=== PATIENT | male | born 1970 | race Caucasian/White ===

== ENCOUNTER 2017-01-21 22:31 | Emergency (ER) | payer BC ==
--- NOTE | 2017-01-21 23:31 | EDM.PDOC ---
ED HPI GI/ABDOMINAL - General Chief Complaint: Chest Pain Stated Complaint: SOB CHEST AND BACK PAINS Time Seen by Provider: 01/21/17 23:16 Source of Information: Reports: Patient, Family (), RN notes reviewed History Limitations: Reports: No limitations - History of Present Illness INITIAL COMMENTS - FREE TEXT/NARRATIVE: The patient states that he developed sudden-onset central chest pain that radiated through to his mid-back around 21:20 tonight while he was relaxing, watching TV. The pain has been waxing and waning since. He feels somewhat better if he is standing, somewhat worse if he is supine. He reports dyspnea, slight nausea, slight clamminess, and anxiety. He states that he has had 4 or 5 similar episodes over the past month. They always occur while the patient is resting. They typically last about 2 minutes , but tonight's episode has lasted much longer. The patient reports that he had Doll's, MAC/tuna salad, and deviled eggs for dinner around 17:00. The patient states that he has a history of GERD, for which he takes over-the- counter Prilosec, but no other medical problems. He acknowledges that he does not have a doctor, and does not recall that he has ever had a general physical exam. - Related Data Allergies/ADRs: Allergies Allergy/AdvReac Type Severity Reaction Status Date / Time No Known Allergies Allergy Verified 03/13/15 12:25 Home Meds: Home Meds Omeprazole Magnesium [Prilosec Otc] 20 mg PO DAILY 01/21/17 [History] Ondansetron [Zofran ODT] 4 mg PO Q8H PRN #10 tab.dis 01/22/17 [Rx] Past Medical History Gastrointestinal History: Reports: GERD Social & Family History - Tobacco Use Smoking Status *Q: Current Every Day Smoker Years of Tobacco use: 20 Packs/Tins Daily: 0.5 - Alcohol Use Alcohol Use History: No - Recreational Drug Use Recreational Drug Use: No - Living Situation & Occupation Living situation: Reports: , with spouse, with family (Son) Occupation: employed ([employer]) ED ROS GENERAL - Review of Systems Review Of Systems: See Below Constitutional: Reports: no symptoms HEENT: Reports: No symptoms Respiratory: Reports: No Symptoms Cardiovascular: Reports: No symptoms Endocrine: Reports: no symptoms GI/Abdominal: Reports: No symptoms : Reports: no symptoms Musculoskeletal: Reports: no symptoms Skin: Reports: no symptoms Neurological: Reports: No Symptoms Psychiatric: Reports: No symptoms Hematologic/Lymphatic: Reports: no symptoms Immunologic: Reports: no symptoms ED EXAM, GI/ABD - Physical Exam Exam: See Below Exam Limited By: No limitations General Appearance: alert, WD/WN, anxious, mild distress (Appears uncomfortable) Eyes: bilateral: normal appearance, EOMI Ears: normal external exam, hearing grossly normal Nose: normal inspection, no blood Throat/Mouth: Normal inspection, Normal lips, Normal voice, No airway compromise Head: atraumatic, normocephalic Neck: normal inspection, full range of motion Respiratory/Chest: no respiratory distress, lungs clear, normal breath sounds, no accessory muscle use, chest non-tender Cardiovascular: normal peripheral pulses, regular rate, rhythm, no edema, no gallop, no JVD, no murmur, no rub GI/Abdominal: normal bowel sounds, soft, no organomegaly, no distention, no abnormal bruit, no mass, tenderness (Reproducible, to the right upper quadrant and epigastric region. Essentially nontender elsewhere.), Crowe's sign Back Exam: normal inspection, full range of motion, other (The patient indicates that the pain radiates through to just under his right scapula. No tenderness to this area). No: CVA tenderness (L), CVA tenderness (R) Extremities: normal inspection, normal range of motion, non-tender, normal capillary refill, no pedal edema Neurological: alert, oriented, normal cognition, no motor/sensory deficits Psychiatric: normal affect, anxious Skin Exam: Warm, Dry, Intact, Normal color, No rash Lymphatic: no adenopathy EKG INTERPRETATION EKG Date: 01/21/17 Time: 22:59 Rhythm: NSR Rate (beats/min): 81 [place]: normal P-wave: present QRS: normal ST-T: normal QT: normal Comparison: NA - no prior EKG Course - Vital Signs Last Recorded V/S: Last Vital Signs Temp 36.9 C 01/21/17 23:41 Pulse 87 01/22/17 02:27 Resp 16 01/22/17 02:27 BP 122/81 01/22/17 02:27 Pulse Ox 99 01/22/17 02:27 - Orders/Labs/Meds Labs: Laboratory Tests 01/21/17 01/21/17 01/21/17 Range/Units 23:13 23:13 23:13 WBC (4.23-9.07) K/mm3 RBC (4.63-6.08) M/mm3 Hgb (13.7-17.5) gm/L Hct (40.1-51.0) % MCV (79.0-92.2) fl MCH (25.7-32.2) pg MCHC (32.2-35.5) g/dl RDW Std Deviation (35.1-43.9) fL Plt Count (163-337) K/mm3 MPV (9.4-12.3) fl Neut % (Auto) (34.0-67.9) % Lymph % (Auto) (21.8-53.1) % [place] % (Auto) (5.3-12.2) % Eos % (Auto) (0.8-7.0) Baso % (Auto) (0.1-1.2) % Neut # (1.78-5.38) K/mm3 Lymph # (1.32-3.57) K/mm3 [place] # (0.30-0.82) K/mm3 Eos # (0.04-0.54) K/mm3 Baso # (0.01-0.08) K/mm3 PT 9.5 (8.0-13.0) SECONDS INR 0.88 APTT 24 (22-36) SECONDS Sodium (136-145) mEq/L Potassium (3.5-5.1) mEq/L Chloride (98-107) mEq/L Carbon Dioxide (21-32) mEq/L Anion Gap (5-15) BUN (7-18) mg/dL Creatinine (0.7-1.3) mg/dL Est Cr Clr Drug Dosing mL/min Estimated GFR (MDRD) (>60) mL/min BUN/Creatinine Ratio (14-18) Glucose (74-106) mg/dL Calcium (8.5-10.1) mg/dL Total Bilirubin (0.2-1.0) mg/dL AST (15-37) U/L ALT (16-63) U/L Alkaline Phosphatase (46-116) U/L Troponin I < 0.017 (0.00-0.056) ng/mL Total Protein (6.4-8.2) g/dl Albumin (3.4-5.0) g/dl Globulin gm/dL Albumin/Globulin Ratio (1-2) Lipase (73-393) U/L Urine Color (Yellow) Urine Appearance (Clear) Urine pH (5.0-8.0) Ur Specific [place] (1.005-1.030) Urine Protein (Negative) Urine Glucose (UA) (Negative) Urine Ketones (Negative) Urine Occult Blood (Negative) Urine Nitrite (Negative) Urine Bilirubin (Negative) Urine Urobilinogen (0.2-1.0) Ur Leukocyte Esterase (Negative) Urine RBC (0-5) /hpf Urine WBC (0-5) /hpf Ur Epithelial Cells (0-5) /hpf Urine Bacteria (FEW) /hpf Urine Mucus (FEW) /hpf Urine Yeast (NOT SEEN) 01/21/17 01/21/17 01/22/17 Range/Units 23:13 23:13 01:10 WBC 10.17 H (4.23-9.07) K/mm3 RBC 4.88 (4.63-6.08) M/mm3 Hgb 15.6 (13.7-17.5) gm/L Hct 44.3 (40.1-51.0) % MCV 90.8 (79.0-92.2) fl MCH 32.0 (25.7-32.2) pg MCHC 35.2 (32.2-35.5) g/dl RDW Std Deviation 43.6 (35.1-43.9) fL Plt Count 323 (163-337) K/mm3 MPV 10.5 (9.4-12.3) fl Neut % (Auto) 51.0 (34.0-67.9) % Lymph % (Auto) 35.4 (21.8-53.1) % [place] % (Auto) 9.5 (5.3-12.2) % Eos % (Auto) 2.8 (0.8-7.0) Baso % (Auto) 0.9 (0.1-1.2) % Neut # 5.19 (1.78-5.38) K/mm3 Lymph # 3.60 H (1.32-3.57) K/mm3 [place] # 0.97 H (0.30-0.82) K/mm3 Eos # 0.28 (0.04-0.54) K/mm3 Baso # 0.09 H (0.01-0.08) K/mm3 PT (8.0-13.0) SECONDS INR APTT (22-36) SECONDS Sodium 143 (136-145) mEq/L Potassium 3.4 L (3.5-5.1) mEq/L Chloride 107 (98-107) mEq/L Carbon Dioxide 24 (21-32) mEq/L Anion Gap 15.4 H (5-15) BUN 18 (7-18) mg/dL Creatinine 1.0 (0.7-1.3) mg/dL Est Cr Clr Drug Dosing 94.27 mL/min Estimated GFR (MDRD) > 60 (>60) mL/min BUN/Creatinine Ratio 18.0 (14-18) Glucose 189 H (74-106) mg/dL Calcium 8.6 (8.5-10.1) mg/dL Total Bilirubin 0.1 L (0.2-1.0) mg/dL AST 23 (15-37) U/L ALT 77 H (16-63) U/L Alkaline Phosphatase 72 (46-116) U/L Troponin I (0.00-0.056) ng/mL Total Protein 6.6 (6.4-8.2) g/dl Albumin 3.7 (3.4-5.0) g/dl Globulin 2.9 gm/dL Albumin/Globulin Ratio 1.3 (1-2) Lipase 322 (73-393) U/L Urine Color Yellow (Yellow) Urine Appearance Clear (Clear) Urine pH 6.0 (5.0-8.0) Ur Specific [place] 1.015 (1.005-1.030) Urine Protein Negative (Negative) Urine Glucose (UA) Negative (Negative) Urine Ketones Negative (Negative) Urine Occult Blood Negative (Negative) Urine Nitrite Negative (Negative) Urine Bilirubin Negative (Negative) Urine Urobilinogen 0.2 (0.2-1.0) Ur Leukocyte Esterase Negative (Negative) Urine RBC 0-5 (0-5) /hpf Urine WBC Not seen (0-5) /hpf Ur Epithelial Cells 0-5 (0-5) /hpf Urine Bacteria Rare (FEW) /hpf Urine Mucus Not seen (FEW) /hpf Urine Yeast Not seen (NOT SEEN) Meds: Medications Discontinued Medications Generic Name Dose Route Start Last Admin Trade Name Geoff PRN Reason Stop Dose Admin Diatrizoate Meglum/Diatrizoate Sod 90 ml 01/22/17 00:03 01/22/17 00:53 Gastrografin 37% PO 01/22/17 00:04 90 ml ONETIME ONE Administration Diphenhydramine HCl 50 mg 01/21/17 23:48 01/22/17 00:30 Benadryl IVPUSH 01/21/17 23:49 50 mg ONETIME ONE Administration Sodium Chloride 1,000 mls @ 150 mls/hr 01/21/17 23:45 01/22/17 00:37 Normal Saline IV 150 mls/hr ASDIRECTED DONNA Administration Iopamidol 125 ml 01/22/17 00:03 01/22/17 00:53 Isovue-300 (61%) IVPUSH 01/22/17 00:04 125 ml ONETIME ONE Administration Sodium Chloride 10 ml 01/22/17 00:03 01/22/17 00:53 Saline Flush FLUSH 01/22/17 00:04 10 ml ONETIME ONE Administration - Radiology Interpretation Free Text/Narrative:: Portable chest radiograph appears to be grossly normal. Cardiac silhouette is within normal limits. No pulmonary vascular congestion. No pleural effusions. No focal infiltrate. No pneumothorax. Formal read per the Radiologist pending. CT of the abdomen and pelvis with oral and IV contrast is read by virtual radiology as: 1. No acute finding. 2. Hepatomegaly, hepatic steatosis. 3. No CT findings of acute appendicitis. 4. No CT findings of acute diverticulitis or colitis. - Re-Assessments/Exams Free Text/Narrative Re-Assessment/Exam: 01/22/17 02:04 Test results discussed with the patient and his . Today's workup is grossly unremarkable, with the exception of the finding of hyperglycemia. Clinically, the patient is suffering from biliary colic. I would recommend a low-fat diet, and refer him to Dr. Ku for further evaluation. I will refer him to his 's PCP, Saumya Garduno, for further evaluation of his hyperglycemia. I will e-prescribe Zofran. I will write a note for the patient for work today. Departure - Departure Time of Disposition: 02:05 Disposition: Home, Self-Care 01 Condition: fair Clinical Impression: Biliary colic, Hyperglycemia Prescriptions: Ondansetron [Zofran ODT] 4 mg PO Q8H PRN #10 tab.dis PRN Reason: Nausea/Vomiting Instructions: Biliary Colic, Hyperglycemia, [id number] Referrals: Saumya Garduno PA [Primary Care Provider] - Bernardo Ku MD [Physician] - Forms: ED Department Discharge, Return to Work/School Form Additional Instructions: [facility], radiating through to your back. Workup in the ER included blood work, a urinalysis, an ECG, a chest x-ray, and a CT scan of your abdomen and pelvis. Your workup was unremarkable, with the exception of the finding of elevated blood sugar at 189. This indicates that you have prediabetes, and may have actual diabetes. Followup with Saumya Garduno for further evaluation for diabetes. In the meantime, go to the [place] [employer] website, and go to the section on What To Eat, to learn about a low glycemic index diet, also known as a diabetic diet. Your chest pain is likely caused by your gallbladder, also known as biliary colic. We recommend you eat a low-fat/oil/grease diet. Followup with the General Surgeon Dr. Bernardo Ku, for further evaluation of your gallbladder. While your chest pain today was not due to a heart attack, in order to prevent heart disease in the future, we STRONGLY recommend that you consider quitting smoking. If any other problems, please do not hesitate to return to the ER.
[2017-01-21] MEDS ORDERED: Sodium Chloride 0.9% 1,000 ML IV SCH (23:45)
[2017-01-21] MEDS ORDERED: diphenhydrAMINE 50 MG/ML SDV IVPUSH ONE (23:48)
[2017-01-22] MEDS ORDERED: Iopamidol 612 MG/ML 150 ML Bottle IVPUSH ONE (00:03)
[2017-01-22] MEDS ORDERED: Diatrizoate Meglumine/Diatrizoate Sodium 37% 120 ML Bottle PO ONE (00:03)
[2017-01-22] MEDS ORDERED: Sodium Chloride 0.9% 10 ML Syringe FLUSH ONE (00:03)
[2017-01-22 02:28] VITALS: BP 122/81
--- NOTE | 2017-01-22 10:31 | CT ---
CT abdomen and pelvis Technique: Multiple axial sections through the abdomen and pelvis were obtained from above the dome of the diaphragm inferiorly through the pubic symphysis. Intravenous and oral contrast has been given. Delayed images were also obtained through the bladder. Comparison: No previous CT exam. Findings: Visualized lung bases show nothing acute. Fatty infiltration noted within the liver. Liver is also somewhat generous in size. No focal abnormality appreciated within the liver. Spleen appears within normal limits. Adrenal glands show no nodule. Pancreas is within normal limits. Kidneys show contrast enhancement without hydronephrosis or mass. Adrenal glands show no nodule. Aorta shows no aneurysmal dilatation. No retroperitoneal adenopathy is seen. Gallbladder shows no calcified gallstones. No mesenteric abnormalities are seen. Appendix is seen which appears normal in size. No pelvic mass or adenopathy is identified. Delayed images show contrast within the distal ureters and bladder. Bone window settings were reviewed which appear within normal limits for the patient's age. Small fat-containing umbilical hernia is noted. Impression: 1. Fatty infiltration within the liver. Other incidental findings. 2. Nothing acute is identified on CT study of the abdomen and pelvis. Diagnostic code #3 Agree with preliminary report issued by [employer] (preliminary [facility] report dictated on 01/22/17, 2:09 AM Central Time)
--- NOTE | 2017-01-22 10:31 | CR ---
Chest: Portable view of the chest was obtained. Comparison: Previous chest x-ray of 03/13/15. Heart size and mediastinum are normal. Slight atelectasis is noted off the left cardiac apex. Lungs otherwise are clear. Bony structures are grossly intact. Impression: 1. Minimal atelectasis. Nothing acute is identified on portable chest x-ray. Diagnostic code #2
== END 2017-01-22 02:20 | disposition home or self-care (01) ==
LOC: JD.ED 22:31
DX: K80.50 Calculus of bile duct without cholangitis or cholecystitis without obstruction (principal); R73.9 Hyperglycemia, unspecified; Z79.899 Other long term (current) drug therapy; F17.200 Nicotine dependence, unspecified, uncomplicated
CPT/HCPCS: 36415; 71010; 74177; 80053; 81001; 83690; 84484; 85025; 85610; 85730; 93005; 96361; 96374; 99285; J1200; J7040; J7050; Q9963; Q9967; 99284